=== PATIENT | female | born 1995 | race Caucasian/White ===

== ENCOUNTER 2016-12-19 07:32 | Inpatient (IN) | payer OTHER ==
[2016-12-19] VITALS (20 sets, daily range): BP systolic 112–147; BP diastolic 63–94
[~2016-12-19] VITALS: Ht 162.6 cm; Wt 95.5 kg
[2016-12-19 09:14] LABS: EOSINOPHIL (%) 1.4 % (0-5); EOSINOPHIL COUNT 0.2 K/uL (0-0.3); HEMATOCRIT 34.1 % (36.0-46.0); IMMATURE GRANULOCYTE (%) 1.1 % (0.0-0.7); IMMATURE GRANULOCYTE COUNT 0.1 K/uL; INSTRUMENT ABS NEUTROPHIL CT 6.7 K/uL; LYMPHOCYTE COUNT 2.3 K/uL (1.0-2.8); MCH 26.3 PG (29.0-34.0); MCHC 32.3 G/DL (30.0-36.0); MCV 81.6 FL (83-99); MEAN PLAT.VOLUME 11.3 uM^3 (9.5-12.4); MONOCYTE (%) 11.2 % (3-12); MONOCYTE COUNT 1.2 K/uL (0-0.8); NEUTROPHIL (%) 64.3 % (45-76); NEUTROPHIL COUNT 6.7 K/uL (1.8-6.4); PLATELET COUNT 178 K/uL (156-360); RBC DIS.WIDTH-CV 13.7 % (11.8-14.6); RBC DIS.WIDTH-SD 40.9 % (39-53); RED BLOOD COUNT 4.18 M/uL (3.80-5.20); WHITE BLOOD COUNT 10.5 K/uL (4.1-10.2)
[2016-12-19 10:00] LABS: AMPHETAMINES QUANT VALUE 0 NG/ML; BARBITUATES QUANT VALUE 0 NG/ML; BENZODIAZEPINES QUANT VALUE 0 NG/ML; BENZODIAZEPINES, URINE SCREEN Negative (200 ng/mL); MARIJUANA QUANT VALUE 0 NG/ML; OPIATES QUANTITATIVE VALUE 0 NG/ML; PHENCYCLIDINE QUANT VALUE 0 NG/ML
[2016-12-20] VITALS (36 sets, daily range): BP systolic 109–155; BP diastolic 57–92
[2016-12-21] VITALS (18 sets, daily range): BP systolic 109–165; BP diastolic 58–94
[2016-12-21 12:26] LABS: HEMATOCRIT 24.8 % (36.0-46.0); MCH 26.8 PG (29.0-34.0); MCHC 32.3 G/DL (30.0-36.0); MCV 82.9 FL (83-99); MEAN PLAT.VOLUME 11.5 uM^3 (9.5-12.4); PLATELET COUNT 170 K/uL (156-360); RBC DIS.WIDTH-CV 14.1 % (11.8-14.6); RBC DIS.WIDTH-SD 42.4 % (39-53); WHITE BLOOD COUNT 21.4 K/uL (4.1-10.2)
[2016-12-21 12:29] LABS: RED BLOOD COUNT 2.99 M/uL (3.80-5.20)
[2016-12-21 14:02] LABS: ABS NEUTROPHIL COUNT 20.8; BAND NEUTROPHILS 26.9 % (0-8.0); EOSINOPHIL ABS CT 0; INSTRUMENT ABS NEUTROPHIL CT 18.9 K/uL; LYMPHOCYTES 0.9 % (15.0-45.0); METAMYELOCYTES 0.4 %; PLAT.SUFFICIENCY ADEQUATE; POIKILOCYTOSIS 1+; SEG.NEUTROPHILS 70.5 % (46.0-76.0)
[2016-12-21 19:06] LABS: HEMATOCRIT 22.3 % (36.0-46.0); MCH 27.6 PG (29.0-34.0); MCHC 33.6 G/DL (30.0-36.0); MEAN PLAT.VOLUME 11.8 uM^3 (9.5-12.4); PLATELET COUNT 166 K/uL (156-360); RBC DIS.WIDTH-CV 14.2 % (11.8-14.6); RBC DIS.WIDTH-SD 41.5 % (39-53); RED BLOOD COUNT 2.72 M/uL (3.80-5.20)
[2016-12-21 19:56] LABS: ABS NEUTROPHIL COUNT 20.1; ANISOCYTOSIS 1+; BAND NEUTROPHILS 32.2 % (0-8.0); EOSINOPHIL ABS CT 0; INSTRUMENT ABS NEUTROPHIL CT 19.1 K/uL; LYMPHOCYTES 2.6 % (15.0-45.0); METAMYELOCYTES 3.5 %; MICROCYTOSIS 1+; SEG.NEUTROPHILS 59.1 % (46.0-76.0)
[2016-12-21 20:08] LABS: TROP-I INTERPRETATION NEGATIVE; TROPONIN-I 0.05 ng/mL (0.0-0.30)
[2016-12-22 02:36] VITALS: BP 122/74
[2016-12-22 03:09] VITALS: BP 125/70
[2016-12-22 07:09] LABS: HEMATOCRIT 19.9 % (36.0-46.0); MCHC 32.7 G/DL (30.0-36.0); MCV 82.6 FL (83-99); MEAN PLAT.VOLUME 11.9 uM^3 (9.5-12.4); PLATELET COUNT 166 K/uL (156-360); RBC DIS.WIDTH-CV 14.3 % (11.8-14.6); RBC DIS.WIDTH-SD 42.5 % (39-53); RED BLOOD COUNT 2.41 M/uL (3.80-5.20); WHITE BLOOD COUNT 21.4 K/uL (4.1-10.2)
[2016-12-22 07:28] LABS: ABS NEUTROPHIL COUNT 19.5; ANISOCYTOSIS 1+; BASOPHILS 0.4 %; EOSINOPHIL ABS CT 0; INSTRUMENT ABS NEUTROPHIL CT 18.5 K/uL; LYMPHOCYTES 5.7 % (15.0-45.0); PLAT.SUFFICIENCY ADEQUATE; POIKILOCYTOSIS 1+; POLYCHROMASIA 1+
[2016-12-22 07:37] LABS: BAND NEUTROPHILS 10.9 % (0-8.0); SEG.NEUTROPHILS 80.4 % (46.0-76.0)
[2016-12-22 07:41] VITALS: BP 105/59
[2016-12-22] MEDS ORDERED: FEOSOL325 MG PO (09:50)
[2016-12-22] MEDS ORDERED: PERCOCET 5/31 TABLET PO (09:50)
[2016-12-22] MEDS ORDERED: MOTRIN800 MG PO (09:50)
[2016-12-22 11:34] VITALS: BP 108/60
[2016-12-22 16:03] VITALS: BP 121/67
[2016-12-23] VITALS (17 sets, daily range): BP systolic 106–125; BP diastolic 65–79
[2016-12-23 10:06] LABS: EOSINOPHIL (%) 0.5 % (0-5); EOSINOPHIL COUNT 0.1 K/uL (0-0.3); HEMATOCRIT 16.7 % (36.0-46.0); IMMATURE GRANULOCYTE (%) 1.3 % (0.0-0.7); IMMATURE GRANULOCYTE COUNT 0.2 K/uL; INSTRUMENT ABS NEUTROPHIL CT 11.9 K/uL; LYMPHOCYTE COUNT 1.8 K/uL (1.0-2.8); MCH 26.5 PG (29.0-34.0); MCHC 31.7 G/DL (30.0-36.0); MCV 83.5 FL (83-99); MEAN PLAT.VOLUME 11.3 uM^3 (9.5-12.4); MONOCYTE (%) 5.6 % (3-12); MONOCYTE COUNT 0.8 K/uL (0-0.8); NEUTROPHIL (%) 80.6 % (45-76); NEUTROPHIL COUNT 11.9 K/uL (1.8-6.4); PLATELET COUNT 188 K/uL (156-360); RBC DIS.WIDTH-CV 14.6 % (11.8-14.6); RBC DIS.WIDTH-SD 43.8 % (39-53); WHITE BLOOD COUNT 14.8 K/uL (4.1-10.2)
[2016-12-24] VITALS (14 sets, daily range): BP systolic 124–139; BP diastolic 62–93
[2016-12-24 07:05] LABS: EOSINOPHIL (%) 1.5 % (0-5); EOSINOPHIL COUNT 0.2 K/uL (0-0.3); HEMATOCRIT 22.3 % (36.0-46.0); IMMATURE GRANULOCYTE (%) 2.4 % (0.0-0.7); IMMATURE GRANULOCYTE COUNT 0.3 K/uL; INSTRUMENT ABS NEUTROPHIL CT 9.6 K/uL; LYMPHOCYTE COUNT 1.9 K/uL (1.0-2.8); MCH 27.8 PG (29.0-34.0); MCHC 33.2 G/DL (30.0-36.0); MCV 83.8 FL (83-99); MEAN PLAT.VOLUME 10.5 uM^3 (9.5-12.4); MONOCYTE (%) 8.1 % (3-12); MONOCYTE COUNT 1.1 K/uL (0-0.8); NEUTROPHIL (%) 73.6 % (45-76); NEUTROPHIL COUNT 9.6 K/uL (1.8-6.4); NRBC (%) 0.3 /100 WBC (0-0); PLATELET COUNT 226 K/uL (156-360); RBC DIS.WIDTH-CV 14.8 % (11.8-14.6); RBC DIS.WIDTH-SD 45.2 % (39-53); WHITE BLOOD COUNT 13.1 K/uL (4.1-10.2)
[2016-12-24 07:07] LABS: RED BLOOD COUNT 2.66 M/uL (3.80-5.20)
[2016-12-25 07:45] VITALS: BP 124/75
[2016-12-25 14:18] VITALS: BP 130/89
== END 2016-12-25 18:00 | disposition home or self-care (01) | DRG 765 ==
LOC: LDRP-OP 07:32 → 2WEST 07:33 → LDRP-OP 11:19 → 2WEST 12-21 08:39 → LDRP-OP 01-11 14:16
PROVIDERS: Nurse Practitioner; Obstetrics & Gynecology
PROC: 3E033VJ Introduction of Other Hormone into Peripheral Vein, Percutaneous Approach (ICD-10-PCS; principal; 2016-12-19)
PROC: 3E0P7GC Introduction of Other Therapeutic Substance into Female Reproductive, Via Natural or Artificial Opening (ICD-10-PCS; principal; 2016-12-19)
PROC: 3E0S3CZ (ICD-10-PCS; 2016-12-20)
PROC: 00HU33Z Insertion of Infusion Device into Spinal Canal, Percutaneous Approach (ICD-10-PCS; 2016-12-20)
PROC: 10907ZC Drainage of Amniotic Fluid, Therapeutic from Products of Conception, Via Natural or Artificial Opening (ICD-10-PCS; 2016-12-20)
PROC: 10D00Z1 Extraction of Products of Conception, Low, Open Approach (ICD-10-PCS; 2016-12-21)
PROC: 30233N1 Transfusion of Nonautologous Red Blood Cells into Peripheral Vein, Percutaneous Approach (ICD-10-PCS; 2016-12-23)
DX: O48.0 Post-term pregnancy (principal); O41.1230 Chorioamnionitis, third trimester, not applicable or unspecified; O72.1 Other immediate postpartum hemorrhage; D62 Acute posthemorrhagic anemia; O99.42 Diseases of the circulatory system complicating childbirth; O63.9 Long labor, unspecified; O77.0 Labor and delivery complicated by meconium in amniotic fluid; O32.4XX0 Maternal care for high head at term, not applicable or unspecified; Z3A.41 41 weeks gestation of pregnancy; O76 Abnormality in fetal heart rate and rhythm complicating labor and delivery; O36.63X0 Maternal care for excessive fetal growth, third trimester, not applicable or unspecified; O99.214 Obesity complicating childbirth; E66.9 Obesity, unspecified; Z68.34 Body mass index [BMI] 34.0-34.9, adult; O99.52 Diseases of the respiratory system complicating childbirth; O99.02 Anemia complicating childbirth; R00.0 Tachycardia, unspecified; Z37.0 Single live birth; J45.909 Unspecified asthma, uncomplicated; O62.0 Primary inadequate contractions
CPT/HCPCS: 80306 90; 84484; 85025; 85025 91; 86900; 86901; 86920; 88307; C1755; G0378; J0290; J0295; J0595; J0690; J1170; J1200; J1580; J1885; J1940; J2270; J3010; J7050; J7120; P9016

== ENCOUNTER 2017-11-06 13:40 | Emergency (ER) | payer OTHER ==
[~2017-11-06] VITALS: Ht 160 cm; Wt 91.1 kg
[~2017-11-06 13:40] MED LIST: FEOSOL325 MG PO; MOTRIN800 MG PO; PERCOCET 5/31 TABLET PO
[2017-11-06 14:21] LABS: HEMOGLOBIN 13.5 G/DL (11.9-15.5); MCHC 34.6 G/DL (30.0-36.0); MCV 86.7 FL (83-99); PLATELET COUNT 214 K/uL (156-360); RBC DIS.WIDTH-CV 12.1 % (11.8-14.6); RBC DIS.WIDTH-SD 38.7 % (39-53); WHITE BLOOD COUNT 6.8 K/uL (4.1-10.2)
[2017-11-06 14:31] LABS: ALBUMIN 4.2 g/dL (3.2-4.8)
[2017-11-06 14:32] LABS: CHLORIDE 106 mEq/L (99-109); SODIUM 140 mEq/L (136-147)
[2017-11-06 14:34] LABS: GLUCOSE 93 mg/dL (70-99); TOTAL PROTEIN 7.4 g/dL (6.4-8.3)
[2017-11-06] MEDS ORDERED: MOTRIN800 MG PO (14:34)
[2017-11-06] MEDS ORDERED: PREDNISONE50 MG PO (14:35)
[2017-11-06 14:36] LABS: TOTAL BILIRUBIN 0.4 mg/dL (0.0-1.0)
[2017-11-06 14:37] LABS: ALKALINE PHOSPHATASE 47 IU/L (3-129)
[2017-11-06 14:38] LABS: CREATININE 0.7 mg/dL (0.6-1.3); GFR ESTIMATE (CALCULATED) > 59 mL/min/
[2017-11-06 14:39] LABS: AST (GOT) 14 IU/L (2-34); UREA NITROGEN (BUN) 17 mg/dL (9-23)
[2017-11-06 14:41] LABS: ALT (GPT) 17 IU/L (3-49); LIPASE 28 U/L (1.0-51.0)
[2017-11-06 14:43] VITALS: BP 126/87
[2017-11-06 14:47] LABS: QUANTITATIVE HCG < 4.0 MIU/ML
== END 2017-11-06 14:44 | disposition home or self-care (01) ==
LOC: EME 13:40
PROVIDERS: Nurse Practitioner Family
DX: S43.402A Unspecified sprain of left shoulder joint, initial encounter (principal); M75.22 Bicipital tendinitis, left shoulder; X58.XXXA Exposure to other specified factors, initial encounter
CPT/HCPCS: 73030; 80053; 83690; 84702; 85027; 99281; 99283